=== PATIENT | male | born 1955 | race Caucasian/White ===

== ENCOUNTER 2016-05-10 11:20 | Emergency (ER) | payer OTHER ==
[2016-05-10] MEDS ORDERED: ONDANSETRON 4 MG/2 ML VIAL IVPB ONE (11:22)
[2016-05-10] MEDS ORDERED: morphine CARPU-JECT 4 MG/1 ML DISP.SYRIN IVPUSH ONE ×2 (11:22→12:34)
[2016-05-10] MEDS ORDERED: SODIUM CHLORIDE 1,000 ML IV STA (11:22)
[2016-05-10 11:29] VITALS: BMI 23.1
--- NOTE | 2016-05-10 11:29 | PDOC ---
History of Present Illness - General Chief Complaint: Pain Stated Complaint: RT FLANK PAIN Time Seen by Provider: 05/10/16 11:21 History Source: Patient Exam Limitations: No Limitations - History of Present Illness Initial Comments: 05/10/16 11:25 60 year old male c/ pmh HTN, kidney stones presents with RLQ pain since this morning. Yesterday, noted urinary frequency but denies hematuria or dysuria. Denies fevers. This morning, c/o RLQ pain with nausea. Denies vomiting. Feel generally weak. No diarrhea or sick contacts. Past History - Past Medical History Allergies/Adverse Reactions: Allergies Allergy/AdvReac Type Severity Reaction Status Date / Time No Known Allergies Allergy Verified 05/10/16 11:21 Home Medications: Ambulatory Orders Gas-X 05/10/16 Metoprolol Succinate [Toprol Xl] 12.5 mg PO DAILY 05/10/16 Naproxen [Naprosyn -] 500 mg PO BID PRN #14 tablet 05/10/16 Ondansetron HCl [Zofran] 4 mg PO Q6H PRN #12 tablet 05/10/16 Oxycodone HCl/Acetaminophen [Percocet 5-325 mg Tablet] 1 tab PO Q6H PRN #12 tablet MDD 4 05/10/16 Tamsulosin HCl [Flomax] 0.4 mg PO DAILY #14 cap.er.24h 05/10/16 Anemia: No Asthma: No Cancer: No Cardiac Disorders: No CVA: No COPD: No CHF: No Dementia: No Diabetes: No GI Disorders: Yes (COLONIC POLYPS) Disorders: No HTN: Yes Hypercholesterolemia: No Liver Disease: No Seizures: No Thyroid Disease: No - Surgical History Abdominal Surgery: No Appendectomy: No Cardiac Surgery: No Cholecystectomy: No Lung Surgery: No Neurologic Surgery: No Orthopedic Surgery: No - Psycho/Social/Smoking Cessation Hx Smoking History: Former smoker Have you smoked in the past 12 months: No Number of Cigarettes Smoked Daily: 0 If you are a former smoker, when did you quit?: 1998 Hx Alcohol Use: Yes Drug/Substance Use Hx: No Substance Use Type: Alcohol Hx Substance Use Treatment: No Review of Systems - Review of Systems Able to Perform ROS?: Yes Comments:: 05/10/16 11:26 GENERAL/CONSTITUTIONAL: No fever, weakness. HEAD, EYES, EARS, NOSE AND THROAT: No change in vision. No ear pain or discharge. No sore throat. CARDIOVASCULAR: No chest pain or shortness of breath. RESPIRATORY: No cough, wheezing, or hemoptysis. GASTROINTESTINAL: +abdominal pain and nausea GENITOURINARY: +urinary frequency. No dysuria or change in urination. MUSCULOSKELETAL: No joint or muscle swelling or pain. No neck or back pain. SKIN: No rash NEUROLOGIC: No headache, vertigo, loss of consciousness, or change in strength/ sensation. ENDOCRINE: No increased thirst. No abnormal weight change. HEMATOLOGIC/LYMPHATIC: No anemia, easy bleeding, or history of blood clots. ALLERGIC/IMMUNOLOGIC: No hives or skin allergy. *Physical Exam - Physical Exam Comments: 05/10/16 11:26 GENERAL: Awake, alert, and fully oriented, in no acute distress. HEAD: No signs of trauma EYES: PERRLA, EOMI, sclera anicteric, conjunctiva clear ENT: Auricles normal inspection, hearing grossly normal, nares patent, oropharynx clear without exudates. NECK: Normal ROM, supple, no lymphadenopathy, JVD, or masses LUNGS: Breath sounds equal, clear to auscultation bilaterally. No wheezes, and no crackles HEART: Regular rate and rhythm, normal S1 and S2, no murmurs, rubs or gallops ABDOMEN: Soft. TTP RLQ. no reboudn, no guarding. No guarding, no rebound. No masses. No CVA tenderness EXTREMITIES: Normal range of motion, no edema. No clubbing or cyanosis. No cords, erythema, or tenderness NEUROLOGICAL: Cranial nerves II through XII grossly intact. Normal speech, normal gait SKIN: Warm, Dry, normal turgor, no rashes or lesions noted. ED Treatment Course - LABORATORY CBC & Chemistry Diagram: 05/10/16 11:29 05/10/16 11:26 Medical Decision Making - Medical Decision Making 05/10/16 11:28 Differential includes appendicitis vs. renal colic. Will obtain labs, UA and CT scan of abdomen and pelvis. Pain control, antiemetics, IVF, and reassess. 05/10/16 12:43 CT scan reviewed. Recent passed right kidney stone. CBC, BMP 05/10/16 11:29 05/10/16 11:26 CMP Sodium 134 mmol/L (136-145) L 05/10/16 11:26 Potassium 3.7 mmol/L (3.5-5.1) 05/10/16 11:26 Chloride 98 mmol/L (98-107) 05/10/16 11:26 Carbon Dioxide 26 mmol/L (22-28) 05/10/16 11:26 Anion Gap 10 (8-16) 05/10/16 11:26 BUN 20 mg/dl (7-18) H 05/10/16 11:26 Creatinine 1.1 mg/dl (0.6-1.3) D 05/10/16 11:26 Creat Clearance w eGFR > 60 (>60) 05/10/16 11:26 Random Glucose 144 mg/dl (74-106) H D 05/10/16 11:26 Calcium 9.8 mg/dl (8.4-10.2) 05/10/16 11:26 Total Bilirubin 0.9 mg/dl (0.2-1.0) D 05/10/16 11:26 AST 47 U/L (10-42) H D 05/10/16 11:26 ALT 33 U/L (10-40) D 05/10/16 11:26 Alkaline Phosphatase 51 U/L (32-92) 05/10/16 11:26 Total Protein 7.4 g/dl (6.4-8.3) 05/10/16 11:26 Albumin 4.5 g/dl (3.5-5.0) 05/10/16 11:26 Lipase 31 U/L (22-51) 05/10/16 11:26 Urine Test Results Urine Color Yellow 05/10/16 11:59 Urine Appearance Cloudy 05/10/16 11:59 Urine pH 5.0 (4.5-8) 05/10/16 11:59 Ur Specific [place] >= 1.030 (1.005-1.025) H 05/10/16 11:59 Urine Protein Negative (NEGATIVE) 05/10/16 11:59 Urine Glucose (UA) Negative (NEGATIVE) 05/10/16 11:59 Urine Ketones Negative (NEGATIVE) 05/10/16 11:59 Urine Blood 2+ (NEGATIVE) H 05/10/16 11:59 Urine Nitrite Negative (NEGATIVE) 05/10/16 11:59 Urine Bilirubin Negative (NEGATIVE) 05/10/16 11:59 Ur Leukocyte Esterase Negative (NEGATIVE) 05/10/16 11:59 Urine RBC 5-10 /hpf (0-3) 05/10/16 11:59 Urine WBC 0-3 (3-5) 05/10/16 11:59 Ur Epithelial Cells Moderate /HPF 05/10/16 11:59 Urine Bacteria Moderate /hpf (NEGATIVE) 05/10/16 11:59 Pt reports feeling better. Pt family here to drive patient home. Encourage PO fluids. Flomax Pain control. F/u with urology. Pt verbalizes understanding and agrees with plan. *DC/Admit/Observation/Transfer Diagnosis at time of Disposition: Kidney stone on right side - Discharge Dispostion Disposition: HOME Condition at time of disposition: Improved Admit: No - Prescriptions Prescriptions: Tamsulosin HCl [Flomax] 0.4 mg PO DAILY #14 cap.er.24h Naproxen [Naprosyn -] 500 mg PO BID PRN #14 tablet PRN Reason: Pain Oxycodone HCl/Acetaminophen [Percocet 5-325 mg Tablet] 1 tab PO Q6H PRN #12 tablet MDD 4 PRN Reason: Pain Level 6-10 Ondansetron HCl [Zofran] 4 mg PO Q6H PRN #12 tablet PRN Reason: Nausea - Referrals Referrals: Carlton Agee MD [Staff Physician] - - Patient Instructions Printed Discharge Instructions: DI for Kidney Stones Additional Instructions: Take 500 mg naproxen every 12 hours as needed for pain. If your pain is severe, take a tablet of percocet every 6 hours as needed. This medication may make you drowsy, so please do not drink or drive on this medication. To assist with the kidney stone passing, take a tablet of flomax daily. Follow up with a urologist. Call to schedule an appointment.
[2016-05-10 11:33] VITALS: TEMP 97.7
[2016-05-10 11:40] LABS: BASOPHIL 0.5 % (0-2.0); EOSINOPHIL 0.1 % (0-4.5); MCH 32.7 pg (25.7-33.7); MCHC 34.3 g/dl (32.0-35.9); MEAN CELL VOLUME 95.4 fl (80-96); MEAN PLT VOLUME 7.3 fl (7.5-11.1); NEUTROPHILS 81.8 % (42.8-82.8); PLATELET COUNT 288 K/MM3 (134-434); RDW 12.1 % (11.9-15.9); WHITE BLOOD COUNT 12.9 K/mm3 (4.0-10.0)
[2016-05-10 11:53] LABS: ALBUMIN 4.5 g/dl (3.5-5.0); ALK PHOS 51 U/L (32-92); ANION GAP 10 (8-16); BILIRUBIN,TOTAL 0.9 mg/dl (0.2-1.0); CALCIUM 9.8 mg/dl (8.4-10.2); CO2 26 mmol/L (22-28); CREATININE 1.1 mg/dl (0.6-1.3); GLUCOSE,RANDOM 144 mg/dl (74-106); SGOT/AST 47 U/L (10-42); SGPT/ALT 33 U/L (10-40); TOT PROT 7.4 g/dl (6.4-8.3)
[2016-05-10 12:03] LABS: URINE APPEARANCE Cloudy; URINE BILIRUBIN Negative (NEGATIVE); URINE GLUCOSE (UA) Negative (NEGATIVE); URINE KETONE Negative (NEGATIVE); URINE LEUK ESTERASE Negative (NEGATIVE); URINE NITRITE Negative (NEGATIVE); URINE PROTEIN Negative (NEGATIVE); URINE UROBILINOGEN 0.2 E.U/dl (0.2-1.0)
[2016-05-10 12:04] LABS: URINE BLOOD 2+ (NEGATIVE); URINE COLOR YELLOW
[2016-05-10 12:06] LABS: URINE BACTERIA MODERATE /hpf (NEGATIVE); URINE WBC 0-3 (3-5)
[2016-05-10] MEDS ORDERED: KETOROLAC TROMETHAMINE 30 MG/1 ML VIAL ONE (12:39)
[2016-05-10] MEDS ORDERED: KETOROLAC TROMETHAMINE 30 MG/1 ML VIAL IVPUSH ONE (12:42)
[2016-05-10 12:47] VITALS: BP 121/75; PULSE 88
== END 2016-05-10 13:04 | disposition home or self-care (01) ==
LOC: FER 11:20
PROC: 3E0333Z Introduction of Anti-inflammatory into Peripheral Vein, Percutaneous Approach (ICD-10-PCS; principal; 2016-05-10)
PROC: 3E033NZ Introduction of Analgesics, Hypnotics, Sedatives into Peripheral Vein, Percutaneous Approach (ICD-10-PCS; 2016-05-10)
PROC: 3E033GC Introduction of Other Therapeutic Substance into Peripheral Vein, Percutaneous Approach (ICD-10-PCS; 2016-05-10)
PROC: 3E0337Z Introduction of Electrolytic and Water Balance Substance into Peripheral Vein, Percutaneous Approach (ICD-10-PCS; 2016-05-10)
DX: N23 Unspecified renal colic (principal); I10 Essential (primary) hypertension; Z87.891 Personal history of nicotine dependence
CPT/HCPCS: 36415; 74176; 80053; 81003; 81015; 83690; 85025; 87086; 99283-25

== ENCOUNTER 2019-08-19 06:52 | Day surgery (SDC) | payer OTHER ==
[2019-08-14 18:28] VITALS: BMI 23.1
[2019-08-19] MEDS ORDERED: PROPOFOL 20 ML ONE ×4 (07:35→09:07)
[2019-08-19] MEDS ORDERED: LIDOCAINE HCL/PF 2% SDV 5ML VIAL ONE (07:35)
[2019-08-19 09:20] VITALS: TEMP 98.3
[2019-08-19 12:41] VITALS: BP 126/84; PULSE 82
--- NOTE | 2019-08-21 15:53 | PATH ---
Surgical Pathology Report Patient Name: JANNA LUCIANO [facility]. Rec. #: [id number] /Age/Gender: 1955 (Age: 64) / M Account: [id number] Location: [facility] Taken: 08/19/2019 Received: 08/19/2019 Reported: 08/21/2019 Physicians: Vadim Chinchilla M.D. Specimen(s) Received POLYP HEPATIC FLEXURE Clinical History Family history of colon cancer Postoperative diagnosis: Colon polyp Final Diagnosis HEPATIC FLEXURE, POLYP, BIOPSY: HYPERPLASTIC POLYP. Electronically Signed Hien Bee M.D. Gross Description Received in formalin, labeled "biopsy polyp hepatic flexure" is a rodriguez, irregular portion of soft tissue measuring 0.3 cm. in greatest dimension. The specimen is submitted in toto in one cassette. 08/20/2019 [facility]08/20/2019
== END 2019-08-19 09:50 | disposition home or self-care (01) ==
LOC: FASU-ENDO 06:52
PROVIDERS: ATTEND Internal Medicine Gastroenterology
PROC: 0DBL8ZX Excision of Transverse Colon, Via Natural or Artificial Opening Endoscopic, Diagnostic (ICD-10-PCS; principal; 2019-08-19 08:36)
DX: Z12.11 Encounter for screening for malignant neoplasm of colon (principal); Z80.0 Family history of malignant neoplasm of digestive organs; D12.3 Benign neoplasm of transverse colon
CPT/HCPCS: 88305-TC

== ENCOUNTER 2024-02-22 04:23 | Day surgery (SDC) | payer OTHER, MEDICARE ==
[2024-02-21 10:17] VITALS: BMI 23.3
[2024-02-22] MEDS ORDERED: DEXAMETHASONE SOD PHOSPHATE 10 MG/1 ML VIAL ONE (07:30)
[2024-02-22] MEDS ORDERED: ACETAMINOPHEN 500 MG TABLET (FP) PO PRN (08:34)
[2024-02-22] MEDS: LIDOCAINE HCL 1% PRESERVATIVE FREE - 30ML VIAL IJ ONE ×3 (09:29)
[2024-02-22] MEDS: DEXAMETHASONE SOD PHOSPHATE 10 MG/1 ML VIAL IM ONE ×3 (09:31)
[2024-02-22] MEDS: IOHEXOL 180 MG/1 ML ML IJ ONE ×3 (09:31)
[2024-02-22 10:27] VITALS: BP 144/75; PULSE 84; RESP 20; TEMP 98.4
== END 2024-02-22 09:55 | disposition home or self-care (01) ==
LOC: JASU-SURG 04:23
PROVIDERS: ATTEND Pain Medicine Pain Medicine
PROC: 3E0R3BZ Introduction of Anesthetic Agent into Spinal Canal, Percutaneous Approach (ICD-10-PCS; 2024-02-22)
PROC: 3E0R33Z Introduction of Anti-inflammatory into Spinal Canal, Percutaneous Approach (ICD-10-PCS; principal; 2024-02-22 10:00)
DX: M54.16 Radiculopathy, lumbar region (principal)
CPT/HCPCS: 76000-TC-FY; J1100